=== PATIENT | male | born 1980 | race Caucasian/White ===

== ENCOUNTER 2019-02-05 17:55 | Emergency (ER) | payer SELFPAY ==
[2019-02-05] MEDS: IBUPROFEN 800 MG TAB PO (20:12)
== END 2019-02-05 21:52 | disposition home or self-care (01) ==
LOC: FTE 17:55
DX: S62.304A Unspecified fracture of fourth metacarpal bone, right hand, initial encounter for closed fracture (principal); W22.8XXA Striking against or struck by other objects, initial encounter; Y92.9 Unspecified place or not applicable
CPT/HCPCS: 29125; 73130-RT; 99283-25